=== PATIENT | female | born 1935 | race Caucasian/White ===

== ENCOUNTER 2018-05-13 10:21 | Observation (INO) | payer MEDICARE, OTHER ==
--- NOTE | 2018-05-13 10:40 | Emergency Department Record ---
History of Present Illness - General Chief Complaint: Passed out Stated Complaint: ARMS NUMB, PASSED OUT TOUNGE THICK Time Seen by Provider: 05/13/18 10:26 Source: Patient, Family Mode of Arrival: Wheelchair Limitations: No limitations - History of Present Illness Initial Comments: The patient is here due to possibly passing out for a short time while sitting in a car about an hour ago. She was waiting with her daughter and suddenly felt weak, nauseated and very lightheaded. The patient then reportedly passed out for a few seconds per family. She did not fall or hurt herself. She then when she woke up had very mild R hand numbness, and felt like her tongue was thick. There was no CP, SOB, GARCIA, or visual changes prior to the incident or since. The patient has been evaluated at length recently for iron deficiency anemia and was an inpatient at [facility] within the last month for a week. She had an EGD and Colonoscopy with no bleeding source found and now is scheduled for a camera study. The patient is also getting iron infusions. MD Complaint: Ramah faint, Loss of consciousness Onset/Timin -: Hour(s) Prodromal Symptoms: None Current Symptoms: None Treatments Prior to Arrival: None - Related Data Home Medications Medication Instructions Recorded Confirmed Last Taken Docusate Sodium [Colace] 100 mg PO BID PRN 05/13/18 05/13/18 Unknown Ferrous Sulfate [Feosol] 325 mg PO BID 05/13/18 05/13/18 Unknown Allergies Allergy/AdvReac Type Severity Reaction Status Date / Time codeine Allergy Intermediate NAUSEA Verified 05/13/18 10:27 Travel Screening - Travel/Exposure Within Last 30 Days Have you traveled within the last 30 days?: No Review of Systems Constitutional: Reports: Malaise. Denies: Chills, Fever Eyes: Denies: Eye discharge ENT: Denies: Congestion Respiratory: Denies: Cough, Dyspnea Cardiovascular: Denies: Arrhythmia, Chest pain Endocrine: Reports: Fatigue Gastrointestinal: Denies: Diarrhea, Vomiting Genitourinary: Denies: Dysuria Musculoskeletal: Denies: Arthralgia Neurological: Denies: Abnormal gait Past Medical History - SOCIAL HISTORY Smoking Status: Never smoker - RESPIRATORY Hx Respiratory Disorders: Yes Hx Asthma: Yes Hx COPD: Yes (uses) - CARDIOVASCULAR Hx Cardio Disorders: Yes Hx Hypertension: Yes - NEURO Hx Neuro Disorders: No Hx Neuropathy: Yes (on neurontin) Comment:: RLS - GI Hx GI Disorders: Yes Hx Hiatal Hernia: Yes - Hx Genitourinary Disorders: Yes Comment:: hyst - ENDOCRINE Hx Endocrine Disorders: Yes Hx Thyroid Disease: Yes - MUSCULOSKELETAL Hx Musculoskeletal Disorders: Yes Hx Arthritis: Yes - PSYCH Hx Psych Problems: Yes Hx Anxiety: Yes Hx Depression: Yes - HEMATOLOGY/ONCOLOGY Hx Hematology/Oncology Disorders: No Family Medical History Any Significant Family History?: Yes Hx Cancer: Father Hx Dementia: Mother Hx Heart Disease: Brother/Sister Hx Stroke: Mother Physical Exam - General General Appearance: Alert, Oriented x3, Cooperative, No acute distress - Head Head exam: Atraumatic, Normocephalic, Normal inspection - Eye Eye exam: Normal appearance, PERRL, EOMI - ENT Throat exam: Normal inspection. negative: Tonsillar erythema, Tonsillar exudate - Neck Neck exam: Normal inspection, Full ROM. negative: Tenderness - Respiratory Respiratory exam: Normal lung sounds bilaterally. negative: Respiratory distress - Cardiovascular Cardiovascular Exam: Regular rate, Normal rhythm, Normal heart sounds - GI/Abdominal GI/Abdominal exam: Soft, Normal bowel sounds. negative: Tenderness - Extremities Extremities exam: Normal inspection, Full ROM, Normal capillary refill, Other ( Radial and DP pulses are 2+ and equal bilaterally.). negative: Tenderness - Neurological Neurological exam: Alert, CN II-XII intact, Oriented X3, Reflexes normal. negative: Altered, Motor sensory deficit Course Vital Signs 05/13/18 10:23 Pulse Rate 66 Respiratory 18 Rate Blood Pressure 124/78 Pulse Ox 97 - Reevaluation(s) Reevaluation #1: The patient is doing better at this time. She is resting comfortably and is feeling more herself. 05/13/18 10:56 Reevaluation #2: The patient is doing a lot better at this time. She is alert and active and denies any pain, discomfort, weakness, or numbness. I did recommend a short stay admission and the patient does agree. I also did discuss the case with Yany (NURSE'S COMPANION) and she does agree to the plan for admission. 05/13/18 12:08 Medical Decision Making - Data Complexity MDM Data: Labs Ordered and/or Reviewed, X-Ray Ordered and/or Reviewed, EKG Ordered and/or Reviewed - Lab Data Result diagrams: 05/13/18 10:40 05/13/18 10:40 - EKG Data -: EKG Interpreted by Me EKG: No Acute Changes (NSR at 65, RBBB. Neg ischemic changes.) - Radiology Data Radiology results: Report reviewed (CXR: Neg for acute changes.) Disposition Disposition: Admit Clinical Impression: Syncope Qualifiers: Syncope type: unspecified Qualified Code(s): R55 - Syncope and collapse Disposition: Still a Patient at [facility] Decision to Admit: Admit from ER Decision to Admit Date: 05/13/18 Decision to Admit Time: 12:09 Accepting Physician: Jeff Nieves Discussed w/Accepting Physician: 12:09 Condition: (2) Stable Time of Disposition: 12:09 Quality - Quality Measures Quality Measures: N/A - Blood Pressure Screening View Details: Yes Does Patient Have Any of the Following: No Blood Pressure Classification: Pre-Hypertensive BP Reading Systolic Measurement: 124 Diastolic Measurement: 78 Screening for High Blood Pressure: < Pre-Hypertensive BP, F/U Documented > [ [id number]] Pre-Hypertensive Follow-up Interventions: Referral to alternative/primary care provider.
[2018-05-13] MEDS ORDERED: 0.9 % SODIUM CHLORIDE 1,000 ML BAG IV ONE (10:45)
[2018-05-13 10:53] LABS: BASO % 0.4 % (0-6); EOS % 9.4 % (0-6); GRAN % 70.6 % (47-80); HEMATOCRIT 38.4 % (35.0-47.0); HEMOGLOBIN 11.5 gm/dl (11.6-16.0); LYMPH % 14.3 % (16-45); MEAN CELL VOLUME 82.2 fl (81-97); MEAN CORPUSCULAR HEMOGLOBIN 24.6 pg (27-33); MEAN CORPUSCULAR HGB CONC 29.9 g/dl (32-36); MEAN PLATELET VOLUME 10.2 fl (7.4-10.4); MONO % 5.3 % (0-9); PLATELET COUNT 322 K/uL (130-400); RED BLOOD COUNT 4.67 M/uL (3.80-5.40); WHITE BLOOD COUNT W/O DIFF 6.8 K/uL (4.2-12.2)
[2018-05-13 11:02] LABS: BLOOD UREA NITROGEN 11 mg/dL (8-23); CREATININE 1.2 mg/dL (0.5-0.9); EST GLOMERULAR FILTRATION RATE 46 mL/min
[2018-05-13 11:05] LABS: GLUCOSE,RANDOM 149 mg/dL (74-109)
[2018-05-13 11:06] LABS: INR 1.1; PARTIAL THROMBOPLASTIN TIME 23.1 SECONDS (24.5-39.1); PROTHROMBIN TIME (PATIENT) 10.7 SECONDS (9.5-12.1)
[2018-05-13 11:07] LABS: CREATINE PHOSPHOKINASE 41 U/L (26-192)
[2018-05-13 11:09] LABS: CKMB < 1.0 ng/mL (<3.77)
[2018-05-13 11:12] LABS: RED CELL DISTRIBUTION WIDTH 24.6 % (11.5-14.5)
[2018-05-13] MEDS ORDERED: POTASSIUM CHLORIDE 20 MEQ TABLET PO ONE (11:41)
[2018-05-13] MEDS ORDERED: DOCUSATE SODIUM 100 MG CAPSULE PO PRN (13:22)
--- NOTE | 2018-05-13 14:12 | History & Physical ---
History of Present Illness - Date of Service Date of Service for History & Physical: 05/13/18 - History of Present Illness Admitting Diagnosis: 1. Acute Syncope History of Present Illness: Mrs. Howard is a 82 year-old female who presented to the ED today with c/ o passing out for a short time while sitting in a car about an hour prior. She was waiting with her daughter and suddenly felt weak, nauseated and very lightheaded. The patient then reportedly passed out for a few seconds per family. She did not fall or hurt herself. She then when she woke up had very mild R hand numbness, and felt like her tongue was thick. There was no CP, SOB , GARCIA, or visual changes prior to the incident or since. The patient has been evaluated at length recently for iron deficiency anemia and was an inpatient at [facility] [place] within the last month for a week. She had an EGD and Colonoscopy with no bleeding source found and now is scheduled for a camera study. The patient is also getting iron infusions. Her history includes: HTN, COPD, neuropathy, hiatal hernia, thyroid disease, arthritis, anxiety and depression. In the ED, her vital signs were stable. Her labs revealed Hgb of 11.5, creatinine of 1.2- values appear to be pt's baseline. EKG revealed right BBB, NSR with rate of 65, no acute changes. CXR negative for acute process. Head CT negative for acute changes. She was admitted for obs to r/o cardiac cause of dizziness. 05/13/18 1400: Pt. is resting comfortably in bed. She presently denies any chest pain or dizziness. Cardiology consult ordered, 2D echo w/CF ordered. Also ordered carotid dopplers. PCP: Dr. Murphy Travel Screening - Travel/Exposure Within Last 30 Days Have you traveled within the last 30 days?: No - Travel/Exposure Within Last Year Have you traveled outside the [place] in the last year?: No - Additonal Travel Details Have you been exposed to anyone with a communicable illness?: No - Travel Symptoms Symptom Screening: None Review of Systems Constitutional: Reports: Malaise. Denies: Chills, Fever Eyes: Denies: Eye discharge ENT: Denies: Congestion Respiratory: Denies: Cough, Dyspnea Cardiovascular: Denies: Arrhythmia, Chest pain Endocrine: Reports: Fatigue Gastrointestinal: Denies: Diarrhea, Vomiting Genitourinary: Denies: Dysuria Musculoskeletal: Denies: Arthralgia Neurological: Denies: Abnormal gait Past Medical History - SOCIAL HISTORY Smoking Status: Never smoker - RESPIRATORY Hx Respiratory Disorders: Yes Hx Asthma: Yes Hx COPD: Yes (uses) - CARDIOVASCULAR Hx Cardio Disorders: Yes Hx Hypertension: Yes - NEURO Hx Neuro Disorders: No Hx Neuropathy: Yes (on neurontin) Comment:: RLS - GI Hx GI Disorders: Yes Hx Hiatal Hernia: Yes - Hx Genitourinary Disorders: Yes Comment:: hyst - ENDOCRINE Hx Endocrine Disorders: Yes Hx Thyroid Disease: Yes - MUSCULOSKELETAL Hx Musculoskeletal Disorders: Yes Hx Arthritis: Yes - PSYCH Hx Psych Problems: Yes Hx Anxiety: Yes Hx Depression: Yes - HEMATOLOGY/ONCOLOGY Hx Hematology/Oncology Disorders: No Family Medical History Any Significant Family History?: Yes Hx Cancer: Father Hx Dementia: Mother Hx Heart Disease: Brother/Sister Hx Stroke: Mother H&P Meds/Allergies - Allergies Allergies: Allergies Allergy/AdvReac Type Severity Reaction Status Date / Time codeine Allergy Intermediate NAUSEA Verified 05/13/18 10:27 - Home Medications Home Medications Medication Instructions Recorded Confirmed Last Taken Docusate Sodium [Colace] 100 mg PO BID PRN 05/13/18 05/13/18 Unknown Ferrous Sulfate [Feosol] 325 mg PO BID 05/13/18 05/13/18 Unknown - Active Medications Active Medications: Current Medications Acetaminophen (Tylenol 500mg Tab) 500 mg PO Q6H PRN PRN Reason: PAIN - MILD(1-4)/FEVER Atorvastatin Calcium (Lipitor) 80 mg PO DAILY [facility] Furosemide (Lasix) 20 mg PO QAM [facility] Gabapentin (Neurontin) 100 mg PO BID [facility] Isosorbide Mononitrate (Imdur) 60 mg PO QAM [facility] Levothyroxine Sodium (Synthroid) 150 mcg PO DAILYTHY [facility] Montelukast Sodium (Singulair) 10 mg PO QHS [facility] Non-Formulary Medication (Aliskiren Hemifumarate [Tekturna]) 300 mg PO QAM [facility] Patient Own Med: (Dexilant 60 Mg) 1 each PO DAILYAC [facility] Ranitidine HCl (Zantac) 300 mg PO QHS [facility] Ropinirole HCl (Requip) 2 mg PO DAILY [facility] Ropinirole HCl (Requip) 4 mg PO QHS [facility] Venlafaxine HCl (Effexor Xr) 75 mg PO DAILY [facility] Physical Exam - Vital Signs Vital Signs: Vital Signs - Last 24 Hrs Temp Pulse Pulse Resp BP BP Pulse Ox 05/13/18 14:05 18 05/13/18 13:25 97.5 F L 58 L 16 135/65 95 05/13/18 13:09 58 L 16 128/65 98 05/13/18 10:43 98.4 F 05/13/18 10:23 66 18 124/78 97 - General General Appearance: Alert, Oriented x3, Cooperative, No acute distress Limitations: No limitations - Head Head exam: Atraumatic, Normocephalic, Normal inspection - Eye Eye exam: Normal appearance, PERRL, EOMI - ENT Throat exam: Normal inspection. negative: Tonsillar erythema, Tonsillar exudate - Neck Neck exam: Normal inspection, Full ROM. negative: Tenderness - Respiratory Respiratory exam: Normal lung sounds bilaterally. negative: Respiratory distress - Cardiovascular Cardiovascular Exam: Regular rate, Normal rhythm, Normal heart sounds - GI/Abdominal GI/Abdominal exam: Soft, Normal bowel sounds. negative: Tenderness - Extremities Extremities exam: Normal inspection, Full ROM, Normal capillary refill, Other ( Radial and DP pulses are 2+ and equal bilaterally.). negative: Tenderness - Neurological Neurological exam: Alert, CN II-XII intact, Oriented X3, Reflexes normal. negative: Altered, Motor sensory deficit Results - Labs Result Diagrams: 05/13/18 10:40 05/13/18 10:40 Labs Last 24 Hours: Laboratory Results - last 24 hr 05/13/18 05/13/18 05/13/18 10:40 10:40 10:40 WBC 6.8 RBC 4.67 Hgb 11.5 L Hct 38.4 MCV 82.2 MCH 24.6 L MCHC 29.9 L RDW 24.6 H Plt Count 322 MPV 10.2 Gran % 70.6 Lymphocytes % 14.3 L Monocytes % 5.3 Eosinophils % 9.4 H Basophils % 0.4 PT 10.7 INR 1.1 APTT 23.1 L Sodium 142 Potassium 3.3 L Chloride 100 Carbon Dioxide 27.0 Anion Gap 15.0 BUN 11 Creatinine 1.2 H Estimated GFR 46 Random Glucose 149 H Calcium 9.6 Creatine Kinase 41 CK-MB (CK-2) < 1.0 Troponin T < 0.010 - Imaging and Cardiology CT scan - head Status: Report reviewed (no acute chages) VTE H&P Assessment - Risk for VTE Risk for VTE: Yes Risk Level: Moderate Risk Assessment Date: 05/13/18 Risk Assessment Time: 14:37 VTE Orders Placed or Will Be Placed: Yes Plan - Detailed Diagnosis and Plan (1) Syncope Current Visit: Yes Status: Acute Qualifiers: Syncope type: unspecified Qualified Code(s): R55 - Syncope and collapse Base Code: R55 - SYNCOPE AND COLLAPSE Comment: 05/13/18: -Pt. currently denies symptoms -RBBB on tele, EKG in ED showed no acute changes -Consulted cardiology, ordered 2D echo w/CF -ordered carotid dopplers -hx of iron deficiency anemia- hgb 11.5 today (2) Iron deficiency anemia Current Visit: Yes Status: Acute Base Code: D50.9 - IRON DEFICIENCY ANEMIA, UNSPECIFIED Comment: 04/13/18: -Hbg in ED 11.5 -Pt. recieves iron infusions -Iron def anemia with unknown cause- capsule GI study scheduled OP -Will continue to monitor labs and VS (3) At risk for deep venous thrombosis Current Visit: Yes Status: Acute Base Code: Z91.89 - OTH PERSONAL RISK FACTORS, NOT ELSEWHERE CLASSIFIED Comment: 05/13/18: -Lovenox 40mg SC daily ordered for DVT prophylaxis (4) Full code status Current Visit: Yes Status: Acute Base Code: Z78.9 - OTHER SPECIFIED HEALTH STATUS Comment: 05/13/18: -Pt. is a full code
[2018-05-13] MEDS: MONTELUKAST SODIUM 10MG TABLET PO SCH (21:29)
[2018-05-13] MEDS: RANITIDINE HCL 150 MG TABLET PO SCH (21:29)
[2018-05-13] MEDS: ROPINIROLE HCL 1 MG TABLET PO SCH (21:29)
[2018-05-13] MEDS: GABAPENTIN 100 MG CAPSULE PO SCH (21:29)
[2018-05-13] MEDS: ENOXAPARIN 40 MG/0.4 ML SYR SQ SCH (21:32)
[2018-05-13] MEDS ORDERED: ROPINIROLE HCL 1 MG TABLET PO SCH (22:00)
[2018-05-13] MEDS ORDERED: FERROUS SULFATE 325 MG TAB PO SCH (22:00)
--- NOTE | 2018-05-14 04:59 | RADIOLOGY REPORT ---
EXAM: PORTABLE CHEST HISTORY: DIFFICULTY IN BREATHING. TECHNIQUE: A portable AP upright view of the chest was performed. FINDINGS: The heart size is normal. Moderate sliding type hiatal hernia. No infiltrate or pleural effusion. The osseous structures are normal. IMPRESSION: MODERATE SLIDING TYPE HIATAL HERNIA, OTHERWISE NEGATIVE. JOB NUMBER: [id number] MTDD
[2018-05-14] MEDS: ALISKIREN HEMIFUMARATE 300 MG PO SCH ×2 (05:01→09:50)
--- NOTE | 2018-05-14 05:05 | US CAROTID DOPPLER REPORT ---
EXAM: BILATERAL CAROTID DOPPLER ULTRASOUND HISTORY: SYNCOPAL EPISODE TODAY, DIZZINESS WHEN STANDING. TECHNIQUE: Shrestha scale, color Doppler and duplex Doppler evaluation of the bilateral carotid arteries was performed. Comparison: No prior carotid Doppler with which to compare. FINDINGS: 3 Vessel Right Peak Systolic/ End Diastolic Velocities Left Peak Systolic/ End Diastolic Velocities Proximal Common Carotid Artery 92.2 cm/s /16.4 cm/s 84.5 cm/s /16.4 cm/s Mid Common Carotid Artery 85.6 cm/s /10.9 cm/s 86.7 cm/s /17.5 cm/s Distal Common Carotid Artery 79.0 cm/s /15.3 cm/s 70.2 cm/s /13.1 cm/s Proximal Internal Carotid Artery 81.4 cm/s /15.4 cm/s 72.4 cm/s /18.0 cm/s Mid Internal Carotid Artery 76.3 cm/s /18.0 cm/s 85.3 cm/s /20.6 cm/s Distal Internal Carotid Artery 86.6 cm/s /18.0 cm/s 85.3 cm/s /18.0 cm/s Carotid Bulb 78.9 cm/s /11.5 cm/s 49.3 cm/s /8.7 cm/s Proximal External Carotid Artery 78.9 cm/s /6.3 cm/s 77.5 cm/s /6.3 cm/s d d d Right Flow Left Flow Vertebral Artery Antegrade Antegrade The peak systolic velocity ratio on the right is 1.0. The peak systolic velocity ratio on the left is 1.0. When the images themselves are reviewed, flow is well seen throughout with no prominent plaque identified within either carotid. IMPRESSION: THE BILATERAL CAROTID DOPPLER ULTRASOUND IS ESSENTIALLY NEGATIVE. NON-ELEVATED PEAK SYSTOLIC AND END DIASTOLIC VELOCITIES WITH NORMAL PEAK SYSTOLIC VELOCITY RATIOS. JOB NUMBER: [id number] MTDD
[2018-05-14] MEDS: LEVOTHYROXINE SODIUM 150 MCG TABLET PO SCH (06:13)
[2018-05-14] MEDS: PATIENT OWN MED: DEXILANT 60 MG PO SCH (06:20)
[2018-05-14 06:48] LABS: BASO % 0.3 % (0-6); EOS % 3.1 % (0-6); GRAN % 68.8 % (47-80); HEMATOCRIT 36.9 % (35.0-47.0); HEMOGLOBIN 11.2 gm/dl (11.6-16.0); LYMPH % 20.2 % (16-45); MEAN CELL VOLUME 82.7 fl (81-97); MEAN CORPUSCULAR HEMOGLOBIN 25.1 pg (27-33); MEAN CORPUSCULAR HGB CONC 30.4 g/dl (32-36); MEAN PLATELET VOLUME 9.9 fl (7.4-10.4); MONO % 7.6 % (0-9); PLATELET COUNT 421 K/uL (130-400); RED BLOOD COUNT 4.46 M/uL (3.80-5.40); RED CELL DISTRIBUTION WIDTH 24.4 % (11.5-14.5); WHITE BLOOD COUNT W/O DIFF 5.9 K/uL (4.2-12.2)
[2018-05-14 06:58] LABS: CREATININE 1.1 mg/dL (0.5-0.9)
--- NOTE | 2018-05-14 08:46 | Physician Progress Note ---
Subjective - Date Date of Physician Progress Note: 05/14/18 - Subjective Subjective Comment: The patient is awake, alert and without any medical compliant this morning. She says that she has not felt dizzy, or lightheaded and has not had any chest pain or shortness of breath. Objective - Vital Signs Vital Signs: Vital Signs - Last 24 Hrs Temp Pulse Pulse Resp BP BP Pulse Ox 05/14/18 08:13 98.0 F 67 18 191/78 97 05/14/18 08:04 18 05/14/18 06:38 62 177/73 05/14/18 04:00 97.4 F L 68 16 186/79 96 05/13/18 21:00 16 05/13/18 20:00 97.5 F L 62 16 147/74 96 05/13/18 16:25 97.2 F L 60 18 144/72 98 05/13/18 14:05 18 05/13/18 13:25 97.5 F L 58 L 16 135/65 95 05/13/18 13:09 58 L 16 128/65 98 05/13/18 10:43 98.4 F 05/13/18 10:23 66 18 124/78 97 - General General Appearance: Alert, Oriented x3, Cooperative, No acute distress Limitations: No limitations - Head Head exam: Atraumatic, Normocephalic, Normal inspection - Eye Eye exam: Normal appearance, PERRL, EOMI - ENT Throat exam: Normal inspection. negative: Tonsillar erythema, Tonsillar exudate - Neck Neck exam: Normal inspection, Full ROM. negative: Tenderness - Respiratory Respiratory exam: Normal lung sounds bilaterally. negative: Respiratory distress - Cardiovascular Cardiovascular Exam: Regular rate, Normal rhythm, Normal heart sounds Peripheral Pulses: 3+: Radial (R), Radial (L), Dorsalis Pedis (R), Dorsalis Pedis (L) - GI/Abdominal GI/Abdominal exam: Soft, Normal bowel sounds. negative: Tenderness - Extremities Extremities exam: Normal inspection, Full ROM, Normal capillary refill, Other ( Radial and DP pulses are 2+ and equal bilaterally.). negative: Tenderness - Neurological Neurological exam: Alert, CN II-XII intact, Oriented X3, Reflexes normal. negative: Altered, Motor sensory deficit Assessment and Plan - Assessment and Plan (1) Syncope Current Visit: Yes Status: Acute Qualifiers: Syncope type: unspecified Qualified Code(s): R55 - Syncope and collapse Base Code: R55 - SYNCOPE AND COLLAPSE Comment: 05/14/18: - No events on court monitor - RBBB on tele, EKG in ED showed no acute changes - Cardioliogy recommending Cardiolite stress and outpatient workup. - Carotid dopplers negative, Echo showing preserved EF of 65% (2) Uncontrolled hypertension Current Visit: Yes Status: Acute Base Code: I10 - ESSENTIAL (PRIMARY) HYPERTENSION Comment: 05/14/18: - poorly controlled BP pm Tekturna 300mg Qam at home. - stopping Imdur 60mg daily. - starting Hydralazine 25ng QID [facility] - monitor over the next 24 hours (3) Iron deficiency anemia Current Visit: Yes Status: Acute Base Code: D50.9 - IRON DEFICIENCY ANEMIA, UNSPECIFIED Comment: 04/14/18: -Hbg in ED 11.5 -->11.2 -Pt. recieves iron infusions -Iron def anemia with unknown cause- capsule GI study scheduled OP -Will continue to monitor labs and VS (4) Hypothyroidism Current Visit: Yes Status: Acute Base Code: E03.9 - HYPOTHYROIDISM, UNSPECIFIED Comment: 05/14/18: - resume home dose of Levothyroxine. (5) At risk for deep venous thrombosis Current Visit: Yes Status: Acute Base Code: Z91.89 - OTH PERSONAL RISK FACTORS, NOT ELSEWHERE CLASSIFIED Comment: 05/14/18: -Lovenox 40mg SC daily ordered for DVT prophylaxis (6) Full code status Current Visit: Yes Status: Acute Base Code: Z78.9 - OTHER SPECIFIED HEALTH STATUS Comment: 05/14/18: -Pt. is a full code Results - Labs Result Diagrams: 05/14/18 06:23 05/14/18 06:23 Labs Last 24 Hours: Laboratory Results - last 24 hr 05/13/18 05/13/18 05/13/18 10:40 10:40 10:40 WBC 6.8 RBC 4.67 Hgb 11.5 L Hct 38.4 MCV 82.2 MCH 24.6 L MCHC 29.9 L RDW 24.6 H Plt Count 322 MPV 10.2 Gran % 70.6 Lymphocytes % 14.3 L Monocytes % 5.3 Eosinophils % 9.4 H Basophils % 0.4 PT 10.7 INR 1.1 APTT 23.1 L Sodium 142 Potassium 3.3 L Chloride 100 Carbon Dioxide 27.0 Anion Gap 15.0 BUN 11 Creatinine 1.2 H Estimated GFR 46 Random Glucose 149 H Calcium 9.6 Creatine Kinase 41 CK-MB (CK-2) < 1.0 Troponin T < 0.010 05/13/18 05/14/18 05/14/18 16:32 00:00 06:23 WBC 5.9 RBC 4.46 Hgb 11.2 L Hct 36.9 MCV 82.7 MCH 25.1 L MCHC 30.4 L RDW 24.4 H Plt Count 421 H MPV 9.9 Gran % 68.8 Lymphocytes % 20.2 Monocytes % 7.6 Eosinophils % 3.1 Basophils % 0.3 PT INR APTT Sodium Potassium Chloride Carbon Dioxide Anion Gap BUN Creatinine Estimated GFR Random Glucose Calcium Creatine Kinase CK-MB (CK-2) Troponin T < 0.010 < 0.010 05/14/18 06:23 WBC RBC Hgb Hct MCV MCH MCHC RDW Plt Count MPV Gran % Lymphocytes % Monocytes % Eosinophils % Basophils % PT INR APTT Sodium 143 Potassium 4.0 Chloride 104 Carbon Dioxide 30.0 H Anion Gap 9.0 BUN 13 Creatinine 1.1 H Estimated GFR 51 Random Glucose 105 Calcium 9.6 Creatine Kinase CK-MB (CK-2) Troponin T DVT/PE Assessment - Risk for VTE Risk for VTE: No Risk Level: Moderate Risk Assessment Date: 05/13/18 Risk Assessment Time: 14:37 VTE Orders Placed or Will Be Placed: Yes - Active Medicaitons Current Medications: Current Medications Acetaminophen (Tylenol 500mg Tab) 500 mg PO Q6H PRN PRN Reason: PAIN - MILD(1-4)/FEVER Atorvastatin Calcium (Lipitor) 80 mg PO DAILY [facility] Enoxaparin Sodium (Lovenox) 40 mg SQ QHS [facility] Last Admin: 05/13/18 21:32 Dose: 40 mg Furosemide (Lasix) 20 mg PO QAM [facility] Gabapentin (Neurontin) 100 mg PO BID [facility] Last Admin: 05/13/18 21:29 Dose: 100 mg Hydralazine HCl (Apresoline) 25 mg PO QID [facility] Isosorbide Mononitrate (Imdur) 60 mg PO QAM [facility] Last Admin: 05/14/18 05:01 Dose: 60 mg Levothyroxine Sodium (Synthroid) 150 mcg PO DAILYTHY [facility] Last Admin: 05/14/18 06:13 Dose: 150 mcg Montelukast Sodium (Singulair) 10 mg PO QHS [facility] Last Admin: 05/13/18 21:29 Dose: 10 mg Non-Formulary Medication (Aliskiren Hemifumarate [Tekturna]) 300 mg PO QAM [facility] Last Admin: 05/14/18 05:01 Dose: 300 mg Patient Own Med: ([facility]ilant 60 Mg) [facility] Last Admin: 05/14/18 06:20 Dose: Not Given Ranitidine HCl (Zantac) 300 mg PO QHS [facility] Last Admin: 05/13/18 21:29 Dose: 300 mg Ropinirole HCl (Requip) 2 mg PO DAILY [facility] Ropinirole HCl (Requip) 4 mg PO QHS [facility] Last Admin: 05/13/18 21:29 Dose: 4 mg Venlafaxine HCl (Effexor Xr) 75 mg PO DAILY [facility] AMI Plan - Labs Result Diagrams: 05/14/18 06:23 05/14/18 06:23
[2018-05-14] MEDS: ROPINIROLE HCL 1 MG TABLET PO SCH ×2 (09:48→21:36)
[2018-05-14] MEDS: GABAPENTIN 100 MG CAPSULE PO SCH ×2 (09:48→21:36)
[2018-05-14] MEDS: FUROSEMIDE 20 MG TABLET PO SCH (09:48)
[2018-05-14] MEDS: ATORVASTATIN 20 MG TABLET PO SCH (09:49)
[2018-05-14] MEDS: VENLAFAXINE ER 75 MG CAPSULE PO SCH (09:49)
[2018-05-14] MEDS: HYDRALAZINE HCL 25 MG TABLET PO SCH ×4 (09:50→21:36)
[2018-05-14] MEDS ORDERED: ISOSORBIDE MONONITRATE 60 MG TAB.ER.24H PO SCH (10:00)
[2018-05-14] MEDS: ACETAMINOPHEN 500 MG TABLET PO PRN ×2 (11:18→17:59)
[2018-05-14] MEDS ORDERED: CARVEDILOL 3.125 MG TABLET PO ONE (12:27)
--- NOTE | 2018-05-14 16:37 | Cardiology Consult ---
DATE OF CONSULTATION: 05/14/2018 REASON FOR CONSULT: SYNCOPE. HISTORY OF PRESENT ILLNESS: This is a pleasant 82-year-old female who presented to the Emergency Department on 05/13/18 with complaints of passing out while sitting in the car. She had been waiting for her daughter and felt nauseated and weak and lightheaded and feels she did lose consciousness for a few seconds. She also complained of her tongue feeling sick and right hand numbness. She denies any symptoms of chest pain, increased dyspnea, orthopnea, or PND. She denies any palpitations or significant lower extremity edema. The patient recently had been admitted to [facility] and was found to be anemic and did undergo transfusions. At that time, she did undergo an echocardiogram, which did demonstrate preserved LVEF. Preliminary report of echocardiography performed here demonstrates also preserved LVEF and no obvious wall motion abnormalities. Patient history includes; hypertension, COPD, neuropathy, hiatal hernia, thyroid disease, arthritis, anxiety, depression, and anemia. She denies a significant family history of premature coronary artery disease. She state her mother did have coronary artery disease but this was in her 70s to 80s. EKG demonstrates right bundle branch and normal sinus rhythm at a rate of 65 beats per minute. No acute changes noted. Head CT was negative for acute changes. The patient does have a previous smoking history but quit years ago. REVIEW OF SYSTEMS: CONSTITUTIONAL: Denies any recent illness, chills, or fever. HEENT: Denies any congestion, headache, change in hearing, or changes in vision. RESPIRATORY; Denies dyspnea, denies cough. CARDIOVASCULAR; Denies palpitation. Denies chest pain. GASTROINTESTINAL; Positive nausea, negative diarrhea, negative vomiting. GENITOURINARY; Denies dysuria. MUSCULOSKELETAL: Denies arthralgia. NEUROLOGICAL : Denies headache or dizziness. HEMATOLOGICAL; Denies easy bruising, history of blood clots. PAST MEDICAL HISTORY: Hypertension, COPD, neuropathy, hiatal hernia, thyroid disease, arthritis, anxiety, depression, anemia. SOCIAL HISTORY: Previous smoker, quit years ago. Denies alcohol consumption. FAMILY HISTORY: Negative for premature coronary artery disease. ALLERGIES: CODEINE. HOME MEDICATIONS: Colace 100 mg b.i.d. prn Iron 325 mg b.i.d. CURRENT MEDICATIONS: Lipitor 80 mg daily Lasix 20 mg daily Neurontin 100 mg b.i.d. Imdur 60 mg every a.m. Synthroid 150 mcg daily Singulair 10 mg p.o. daily Tekturna 300 mg every a.m. Dexilant 60 mg daily Zantac 300 mg daily Requip 2 mg daily Effexor 75 mg daily PHYSICAL EXAMINATION: VITAL SIGNS: Blood pressure 135/65. Pulse 56. Respirations 16. O2 saturation 95 % on room air. She is afebrile. GENERAL: She is alert and oriented x3, in no acute distress. HEENT: Normocephalic, atraumatic. Extraocular movements are intact. Pupils are equal and round. NECK: Supple without lymphadenopathy, thyromegaly, or bruits. CARDIAC: Regular rate and rhythm. No significant murmurs were appreciated. LUNGS: Clear to auscultation in all lung manuel without rales, rhonchi, or wheeze. ABDOMEN: Soft, nontender. Bowel sounds present in all four quadrants. EXTREMITIES: Trace bilateral edema. SKIN: Warm and dry. DIAGNOSTIC STUDIES: LABORATORIES: WBC 6.8. Hemoglobin 11.5 Hematocrit 38.4. Platelet count 322. Sodium 142. Potassium 3.3. Chloride 100. CO2 of 27. BUN 11. Creatinine 1.2. Glucose 149. Troponin less than 0.010. CHEST X-RAY: Chest x-ray was negative for acute process. ASSESSMENT/PLAN: 1. SYNCOPE, POSSIBLY VASOVAGAL EPISODE. We will plan 30-day event monitor. Repeat echocardiogram preliminary report demonstrates no wall motion abnormality and preserved LVEF. We will plan to perform a Lexiscan Cardiolite to assess for any underlying ischemia contributing to symptoms. 2. HYPERTENSION: Patient's blood pressure is well-controlled on the current medication regimen. The patient may be discharged from the cardiac standpoint. We will follow-up with the patient as an outpatient to review Lexiscan Cardiolite and event monitoring. Further recommendations at that time. Thank you for the opportunity to have participated in this patient's care. JOB NUMBER: [id number] [facility]
[2018-05-14] MEDS: MONTELUKAST SODIUM 10MG TABLET PO SCH (21:36)
[2018-05-14] MEDS: RANITIDINE HCL 150 MG TABLET PO SCH (21:36)
[2018-05-14] MEDS: ENOXAPARIN 40 MG/0.4 ML SYR SQ SCH (21:37)
[2018-05-15] MEDS: LEVOTHYROXINE SODIUM 150 MCG TABLET PO SCH (06:02)
[2018-05-15] MEDS: PATIENT OWN MED: DEXILANT 60 MG PO SCH (06:03)
[2018-05-15] MEDS: HYDRALAZINE HCL 25 MG TABLET PO SCH (09:56)
[2018-05-15] MEDS: ATORVASTATIN 20 MG TABLET PO SCH (09:56)
[2018-05-15] MEDS: GABAPENTIN 100 MG CAPSULE PO SCH (09:56)
[2018-05-15] MEDS: VENLAFAXINE ER 75 MG CAPSULE PO SCH (09:56)
[2018-05-15] MEDS: ALISKIREN HEMIFUMARATE 300 MG PO SCH (09:56)
[2018-05-15] MEDS: ROPINIROLE HCL 1 MG TABLET PO SCH (09:57)
[2018-05-15] MEDS: FUROSEMIDE 20 MG TABLET PO SCH (09:57)
--- NOTE | 2018-05-15 09:58 | Discharge Summary ---
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 negative: Tonsillar erythema, Tonsillar exudate - Neck Neck exam: Normal inspection, Full ROM. negative: Tenderness - Respiratory Respiratory exam: Normal lung sounds bilaterally. negative: Respiratory distress - Cardiovascular Cardiovascular Exam: Regular rate, Normal rhythm, Normal heart sounds Peripheral Pulses: 3+: Radial (R), Radial (L), Dorsalis Pedis (R), Dorsalis Pedis (L) - GI/Abdominal GI/Abdominal exam: Soft, Normal bowel sounds. negative: Tenderness - Extremities Extremities exam: Normal inspection, Full ROM, Normal capillary refill, Other ( Radial and DP pulses are 2+ and equal bilaterally.). negative: Tenderness - Neurological Neurological exam: Alert, CN II-XII intact, Oriented X3, Reflexes normal. negative: Altered, Motor sensory deficit Hospitalization - Hospitalization Admission Diagnosis: 1. Acute Syncope - Problem List/Discharge Diagnosis (1) Syncope Status: Acute Discharge Diagnosis: Syncope type: unspecified Qualified Code(s): R55 - Syncope and collapse Base Code: R55 - SYNCOPE AND COLLAPSE Comment: 05/15/18: - No events on desk monitor - RBBB on tele, EKG in ED showed no acute changes - Cardioliogy recommending Cardiolite stress and outpatient workup. - Carotid dopplers negative, Echo showing preserved EF of 65% (2) Uncontrolled hypertension Status: Acute Base Code: I10 - ESSENTIAL (PRIMARY) HYPERTENSION Comment: 05/15/18: - poorly controlled BP pm Tekturna 300mg Qam at home. - stopping Imdur 60mg daily. - starting Hydralazine 25mg QID DEBORAH - monitor over the next 24 hours - BP has improved on hydralazine. (3) Iron deficiency anemia Status: Acute Base Code: D50.9 - IRON DEFICIENCY ANEMIA, UNSPECIFIED Comment : 04/15/18: -Hbg in ED 11.5 -->11.2 -Pt. recieves iron infusions -Iron def anemia with unknown cause- capsule GI study scheduled OP -Will continue to monitor labs and VS (4) Hypothyroidism Status: Acute Base Code: E03.9 - HYPOTHYROIDISM, UNSPECIFIED Comment: 05/15/18: - resume home dose of Levothyroxine. (5) At risk for deep venous thrombosis Status: Acute Base Code: Z91.89 - [facility] PERSONAL RISK FACTORS, NOT ELSEWHERE CLASSIFIED Comment: 05/15/18: -Lovenox 40mg SC daily ordered for DVT prophylaxis (6) Full code status Status: Acute Base Code: Z78.9 - OTHER SPECIFIED HEALTH STATUS Comment: : -Pt. is a full code - Hospitalization Course Disposition: Home, Self-Care Hospital Course: Mrs. Howard is a 82 year-old female who presented to the ED today with c/ o passing out for a short time while sitting in a car about an hour prior. She was waiting with her daughter and suddenly felt weak, nauseated and very lightheaded. The patient then reportedly passed out for a few seconds per family. She did not fall or hurt herself. She then when she woke up had very mild R hand numbness, and felt like her tongue was thick. There was no CP, SOB , GARCIA, or visual changes prior to the incident or since. The patient has been evaluated at length recently for iron deficiency anemia and was an inpatient at [facility] within the last month for a week. She had an EGD and Colonoscopy with no bleeding source found and now is scheduled for a camera study. The patient is also getting iron infusions. Her history includes: HTN, COPD, neuropathy, hiatal hernia, thyroid disease, arthritis, anxiety and depression. In the ED, her vital signs were stable. Her labs revealed Hgb of 11.5, creatinine of 1.2- values appear to be pt's baseline. EKG revealed right BBB, NSR with rate of 65, no acute changes. CXR negative for acute process. Head CT negative for acute changes. She was admitted for obs to r/o cardiac cause of dizziness. 05/13/18 1400: Pt. is resting comfortably in bed. She presently denies any chest pain or dizziness. Cardiology consult ordered, 2D echo w/CF ordered. 05/14-05/15: Dopplers negative for stenosis, 2D echo showing preserved EF. The patient's blood pressure is not well controlled and hydralazine was added to her medication. Imdur was discontinued and over the 24 hour period her blood pressure improved. On examination at discharge the patient had no new complaint and is to be discharged home with further management by her primary care doctor. The medication regimen was explained to the patient and her daughter. PCP: Dr. Murphy Procedures: Imaging and X-Rays 05/13/18 10:45 CHEST 1 VIEW [RAD] Stat 05/13/18 14:28 ARTERIAL DOPPLER CAROTID CHIARA [US] Stat Cardiology Procedures 05/13/18 10:37 Promotions Representative NOW EKG NOW 05/13/18 12:05 Echo W/CF & Cardiac Doppler ONCE 05/13/18 13:22 Promotions Representative .Continuous EKG QDX2@0600 05/13/18 15:24 Echocardiogram 2D - Limited NOW Abnormal Labs: Abnormal Lab Results 05/13/18 05/13/18 05/13/18 Range/Units 10:40 10:40 10:40 Hgb 11.5 L (11.6-16.0) gm/dl MCH 24.6 L (27-33) pg MCHC 29.9 L (32-36) g/dl RDW 24.6 H (11.5-14.5) % Plt Count (130-400) K/uL Lymphocytes % 14.3 L (16-45) % Eosinophils % 9.4 H (0-6) % APTT 23.1 L (24.5-39.1) SECONDS Potassium 3.3 L (3.4-4.5) mmol/L Carbon Dioxide (22-29) mmol/L Creatinine 1.2 H (0.5-0.9) mg/dL Random Glucose 149 H (74-109) mg/dL 18 05/14/18 Range/Units 06:23 06:23 Hgb 11.2 L (11.6-16.0) gm/dl MCH 25.1 L (27-33) pg MCHC 30.4 L (32-36) g/dl RDW 24.4 H (11.5-14.5) % Plt Count 421 H (130-400) K/uL Lymphocytes % (16-45) % Eosinophils % (0-6) % APTT (24.5-39.1) SECONDS Potassium (3.4-4.5) mmol/L Carbon Dioxide 30.0 H (22-29) mmol/L Creatinine 1.1 H (0.5-0.9) mg/dL Random Glucose (74-109) mg/dL Condition at Discharge: (2) Stable Discharge Medications - Discharge Medications Prescriptions: Hydralazine HCl [Apresoline] 25 mg PO TID #21 tablet Home Medications: Ambulatory Orders [place] Hemifumarate [Tekturna] 300 mg PO QAM 01/14/16 [Last Taken Unknown] Furosemide 20 mg PO QAM 01/14/16 [Last Taken Unknown] Gabapentin 100 mg PO BID 01/14/16 [Last Taken Unknown] Levothyroxine Sodium [Synthroid] 150 mcg PO QAM 01/14/16 [Last Taken Unknown] Ropinirole HCl [Requip] 2 mg PO BID 01/14/16 [Last Taken Unknown] Docusate Sodium [Colace] 100 mg PO BID PRN 05/13/18 [Last Taken Unknown] Ferrous Sulfate [Feosol] 325 mg PO BID 05/13/18 [Last Taken Unknown] Hydralazine HCl [Apresoline] 25 mg PO TID #21 tablet 05/15/18 [Last Taken Unknown] Montelukast Sodium [Singulair] 10 mg PO QHS tab 05/15/18 [Last Taken Unknown] Ranitidine HCl [Zantac] 300 mg PO QHS tablet 05/15/18 [Last Taken Unknown] Discharge Plan - Discharge Instructions Instructions: Syncope (DC), Hypertension (DC) Additional Instructions: Discontinue Imdur 60mg daily. Begin taking Hydralazine 25mg three times daily. Follow up with your PCP Dr. Chandler in 3-5 days for medication dose adjustments and post hospital check up. Appointment with Dr. Rodriguez of the [facility] for Stress testing and further Cardiology workup on 06/12/17. If you experience the symptoms again or have shortness of breath or chest pain please return to the ED immediately. Quality Measures - Quality Measures Quality Measures: Advance Directives, Documentation of Current Medications in Medical Record, Elder Maltreatment Screen and Follow-Up Plan, Screening for High Blood Pressure and F/U Documented - Current Medications Quality Measure: Measure #130: Documentation of Current Medications Documentation of Current Medications: <Current Medications Documented/Reviewed> [G8427] - Blood Pressure Screening Quality Measure: Screening for High Blood Pressure and Follow-Up Documented Does Patient Have Any of the Following: Active Dx of HTN Blood Pressure Classification: Pre-Hypertensive BP Reading Systolic Measurement: 124 Diastolic Measurement: 78 Screening for High Blood Pressure: Patient Exclusion, Hx of HTN [G9744] - Advance Directives Quality Measure: Measure #47: Care Plan Advance Directives Established: No Advance Directives Information Provided To Patient: No Advance Directives on File: No Living Will: Yes 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 Power of Wire Machine Cutter Name: verónica() Advance Care Planning: <Care Plan/Decision Maker Not Decided; Discussed & Documented> [1124F] - Elder Abuse Suspicion Index Screening: Elder Abuse Suspicion Index Screening Rely on people for bathing, dressing, shopping, banking, etc: No Prevented from getting food, clothes, medication, etc: No Made to feel shamed or threatened by someone: No Forced to sign papers or use money against will: No Feel afraid, touched in ways not wanted or hurt physically: No Poor eye contact, withdrawn, malnourished, cuts or bruises: No Screening Result: Negative result EASI Reference Information: Sherron SR, Gregoria C, Jeremiah D, Slava Lawler.Development and validation of a tool to assist physicians identification of elder abuse: The Elder Abuse Suspicion Index (EASI ). Journal of Elder Abuse and Neglect, 2008; 20 (3): 276-300. - Elder Maltreatment Screen Quality Measures: Elder Maltreatment Screen and Follow-Up Plan Elder Maltreatment Screen: <Negative, No Follow-Up Plan Required> [G8735]
== END 2018-05-15 10:30 | disposition home or self-care (01) ==
LOC: ER 10:21 → MEDSURG 12:02
PROVIDERS: ADMIT Internal Medicine; ATTEND Internal Medicine
DX: R55 Syncope and collapse (principal); D50.9 Iron deficiency anemia, unspecified; Z91.89 Other specified personal risk factors, not elsewhere classified; Z78.9 Other specified health status; E03.9 Hypothyroidism, unspecified; J44.9 Chronic obstructive pulmonary disease, unspecified; G25.81 Restless legs syndrome; F41.8 Other specified anxiety disorders
CPT/HCPCS: 99285 ×2; 82550; 85025 ×2; 85730; 85610; 82553; 80048 ×2; 84484 ×2; 71045; 93880; 93005 ×2; 93010; 93307; G0378 ×3; J3490 ×2; 99217; 99220; 99226; J1650; J7030

== ENCOUNTER 2018-06-25 11:34 | Emergency (ER) | payer MEDICARE, OTHER ==
[2018-06-25 11:52] LABS: HEMATOCRIT 40.5 % (35.0-47.0); HEMOGLOBIN 13.2 gm/dl (11.6-16.0); MEAN CELL VOLUME 85.6 fl (81-97); MEAN CORPUSCULAR HEMOGLOBIN 27.9 pg (27-33); MEAN CORPUSCULAR HGB CONC 32.6 g/dl (32-36); MEAN PLATELET VOLUME 9.7 fl (7.4-10.4); PLATELET COUNT 337 K/uL (130-400); RED BLOOD COUNT 4.73 M/uL (3.80-5.40); RED CELL DISTRIBUTION WIDTH 19.8 % (11.5-14.5)
[2018-06-25 11:57] LABS: BLOOD UREA NITROGEN 17 mg/dL (8-23); CREATININE 0.9 mg/dL (0.5-0.9); EST GLOMERULAR FILTRATION RATE > 60 mL/min
[2018-06-25 11:58] LABS: LIPASE 20 U/L (13-60); TOTAL PROTEIN 7.4 g/dL (6.6-8.7)
[2018-06-25 12:00] LABS: GLUCOSE,RANDOM 116 mg/dL (74-109)
[2018-06-25 12:02] LABS: ALB/GLOB RATIO 1.3 (1.1-1.8); ALBUMIN 4.2 g/dL (4.0-5.0); ALT/SGPT 19 U/L (<33); AST/SGOT 21 U/L (10.0-35.0)
[2018-06-25 12:03] LABS: ALKALINE PHOSPHATASE 149 U/L (45-87); CREATINE PHOSPHOKINASE 98 U/L (26-192); PLATELET ESTIMATE NORMAL (NORMAL)
[2018-06-25 12:05] LABS: CKMB 2.9 ng/mL (<3.77)
[2018-06-25 12:08] LABS: INR 1.2; PARTIAL THROMBOPLASTIN TIME 31.5 SECONDS (24.5-39.1); PROTHROMBIN TIME (PATIENT) 11.8 SECONDS (9.5-12.1)
[2018-06-25 13:03] LABS: URINE APPEARANCE CLEAR; URINE BILIRUBIN NEGATIVE (NEGATIVE); URINE BLOOD NEGATIVE (NEGATIVE); URINE COLOR YELLOW; URINE GLUCOSE (UA) NEGATIVE (NEGATIVE); URINE KETONE NEGATIVE (NEGATIVE); URINE LEUKOCYTE ESTERASE NEGATIVE (NEGATIVE); URINE NITRITE NEGATIVE (NEGATIVE); URINE PROTEIN NEGATIVE (NEGATIVE); URINE UROBILINOGEN 0.2 E.U./dL (0.20 - 1.00)
[2018-06-25] MEDS ORDERED: LORAZEPAM 2 MG/ML VIAL IV ONE (13:13)
[2018-06-25] MEDS ORDERED: MORPHINE SULFATE 10 MG/ML VIAL IVP ONE (13:13)
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
== END 2018-06-25 13:51 | disposition short-term general hospital (02) ==
LOC: ER 11:34
DX: S22.20XA Unspecified fracture of sternum, initial encounter for closed fracture (principal); S32.020A Wedge compression fracture of second lumbar vertebra, initial encounter for closed fracture; S30.1XXA Contusion of abdominal wall, initial encounter; S80.211A Abrasion, right knee, initial encounter; M25.561 Pain in right knee; J44.9 Chronic obstructive pulmonary disease, unspecified; I10 Essential (primary) hypertension; I48.91 Unspecified atrial fibrillation; Z96.651 Presence of right artificial knee joint; Z79.01 Long term (current) use of anticoagulants; V43.62XA Car passenger injured in collision with other type car in traffic accident, initial encounter
CPT/HCPCS: 70450; 71260; 72125; 74160; 74177; 80053; 81003; 82550; 82553; 83690; 84484; 85027; 85610; 85730; 93005; 93010; 96374; 96375; 99285; J2270

== ENCOUNTER 2018-07-08 14:06 | Emergency (ER) | payer MEDICARE, OTHER ==
[2018-07-08 14:44] LABS: BASO % 0.4 % (0-6); EOS % 1.9 % (0-6); GRAN % 73.6 % (47-80); HEMATOCRIT 40.8 % (35.0-47.0); HEMOGLOBIN 13.1 gm/dl (11.6-16.0); LYMPH % 17.7 % (16-45); MEAN CELL VOLUME 86.1 fl (81-97); MEAN CORPUSCULAR HEMOGLOBIN 27.6 pg (27-33); MEAN CORPUSCULAR HGB CONC 32.1 g/dl (32-36); MEAN PLATELET VOLUME 8.9 fl (7.4-10.4); MONO % 6.4 % (0-9); PLATELET COUNT 379 K/uL (130-400); RED BLOOD COUNT 4.74 M/uL (3.80-5.40); RED CELL DISTRIBUTION WIDTH 18.2 % (11.5-14.5); WHITE BLOOD COUNT W/O DIFF 7.5 K/uL (4.2-12.2)
[2018-07-08 14:58] LABS: BILIRUBIN,TOTAL 0.3 mg/dL (0.2-1.0); CREATININE 1.1 mg/dL (0.5-0.9)
[2018-07-08 14:59] LABS: TOTAL PROTEIN 7.6 g/dL (6.6-8.7)
[2018-07-08 15:04] LABS: ALB/GLOB RATIO 1.2 (1.1-1.8); ALBUMIN 4.1 g/dL (4.0-5.0)
[2018-07-08] MEDS ORDERED: 0.9 % SODIUM CHLORIDE 1,000 ML BAG IV ONE ×2 (15:19→16:20)
[2018-07-08] MEDS ORDERED: MORPHINE SULFATE 10 MG/ML VIAL IVP ONE (16:23)
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
== END 2018-07-08 17:25 | disposition home or self-care (01) ==
LOC: ER 14:06
DX: S22.42XA Multiple fractures of ribs, left side, initial encounter for closed fracture (principal); V43.62XD Car passenger injured in collision with other type car in traffic accident, subsequent encounter; I10 Essential (primary) hypertension; J44.9 Chronic obstructive pulmonary disease, unspecified
CPT/HCPCS: 71260; 74177; 80053; 83690; 85025; 96374; 99283; J2270; J7030

== ENCOUNTER 2018-12-05 13:22 | Emergency (ER) | payer MEDICARE, OTHER ==
[2018-12-05] MEDS ORDERED: 0.9 % SODIUM CHLORIDE 1,000 ML BAG IV ONE (13:27)
--- NOTE | 2018-12-05 13:31 | Emergency Department Record ---
History of Present Illness - General Stated Complaint: ALTERED MENTAL STATE Time Seen by Provider: 12/05/18 13:25 Source: Patient Mode of Arrival: Ambulatory Limitations: No limitations - History of Present Illness Initial Comments: 83 yo female presents by EMS. She has had nausea, vomiting, and diarrhea all night. The symptoms continued into the day. She then began to act abnormal with crying, then laughing. She was getting confused with names. She has been saying for weeks that she can not smell or taste. She states this on arrival as well. She denies headache. Her family arrived and states she has had nausea, vomiting and diarrhea that started in the middle of the night. PCP is Dr Mayo. She was last normal at bedtime. The states she was up several times during the night. On arrival she is oriented to name and place. She is tearful. She is asking for her by name. She is emotionally labile. MD Complaint: Altered mental status, Other (Tearful, States she wants to ) -: Hour(s) (Onset last night) Consistency: Constant Context: Other Associated Symptoms: Nausea/Vomiting, Other (Diarrhea) Treatments Prior to Arrival: IV fluid - Mariano Coma Scale Eye Response: (4) Open spontaneously Motor Response: (6) Obeys commands Verbal Response: (5) Oriented Mariano Total: 15 - Related Data Previous Rx's Medication Instructions Recorded Hydralazine HCl [Apresoline] 25 mg PO TID #21 tablet 05/15/18 Montelukast Sodium [Singulair] 10 mg PO QHS tab 05/15/18 Ranitidine HCl [Zantac] 300 mg PO QHS tablet 05/15/18 Ondansetron [Zofran Odt] 4 mg PO Q8H #7 tab.rapdis 07/08/18 Oxycodone HCl/Acetaminophen 1 each PO Q6H PRN #10 tab 07/08/18 [Percocet 2.5mg/325mg] Allergies Allergy/AdvReac Type Severity Reaction Status Date / Time codeine Allergy Intermediate NAUSEA Verified 12/05/18 13:33 Review of Systems Constitutional: Reports: Chills, Fever, Malaise, Weakness Eyes: Denies: Eye discharge, Photophobia, Vision change ENT: Denies: Congestion, Throat pain Respiratory: Denies: Cough, Dyspnea Cardiovascular: Denies: Chest pain, Palpitations, Syncope Endocrine: Denies: Fatigue Gastrointestinal: Reports: Diarrhea, Nausea, Vomiting. Denies: Abdominal pain Genitourinary: Denies: Dysuria, Urgency Musculoskeletal: Denies: Arthralgia, Back pain, Neck pain Skin: Denies: Bruising, Change in color, Rash Neurological: Reports: Confusion. Denies: Headache, Numbness, Weakness Psychiatric: Reports: Anxiety Hematological/Lymphatic: Denies: Easy bleeding, Easy bruising Past Medical History - SOCIAL HISTORY Smoking Status: Never smoker - RESPIRATORY Hx Respiratory Disorders: Yes Hx Asthma: Yes Hx COPD: Yes (uses) - CARDIOVASCULAR Hx Cardio Disorders: Yes Hx Hypertension: Yes - NEURO Hx Neuro Disorders: No Hx Neuropathy: Yes (on neurontin) Comment:: RLS - GI Hx GI Disorders: Yes Hx Hiatal Hernia: Yes - Hx Genitourinary Disorders: Yes Comment:: hyst - ENDOCRINE Hx Endocrine Disorders: Yes Hx Thyroid Disease: Yes - MUSCULOSKELETAL Hx Musculoskeletal Disorders: Yes Hx Arthritis: Yes - PSYCH Hx Psych Problems: Yes Hx Anxiety: Yes Hx Depression: Yes - HEMATOLOGY/ONCOLOGY Hx Hematology/Oncology Disorders: No Family Medical History Hx Cancer: Father Hx Dementia: Mother Hx Heart Disease: Brother/Sister Hx Stroke: Mother Physical Exam - General General Appearance: Alert, Cooperative, Other (Oriented to Name and Place only thought it was 192) Limitations: Altered mental status - Head Head exam: Atraumatic, Normocephalic, Normal inspection Head exam detail: negative: Abrasion, Contusion - Eye Eye exam: Normal appearance, PERRL, EOMI. negative: Conjunctival injection, Periorbital swelling, Scleral icterus - ENT ENT exam: Normal exam, Mucous membranes moist Ear exam: Normal external inspection Nasal Exam: Normal inspection Mouth exam: Normal external inspection - Neck Neck exam: Normal inspection - Respiratory Respiratory exam: Normal lung sounds bilaterally. negative: Respiratory distress - Cardiovascular Cardiovascular Exam: Tachycardia. negative: Regular rate, Normal rhythm, Normal heart sounds Peripheral Pulses: 2+: Radial (R), Radial (L) - GI/Abdominal GI/Abdominal exam: Soft - Rectal Rectal exam: Deferred - exam: Deferred - Extremities Extremities exam: Normal inspection. negative: Pedal edema, Tenderness - Back Back exam: Denies: CVA tenderness (R), CVA tenderness (L) - Neurological Neurological exam: Alert, Altered, CN II-XII intact, Other (No focal weakness). negative: Motor sensory deficit - Psychiatric Psychiatric exam: Anxious, Other (Tearful, then speaks oddly then back to normal). negative: Agitated, Normal affect, Normal mood - Skin Skin exam: Dry, Intact, Normal color, Warm Course - Reevaluation(s) Reevaluation #1: EKG #1: 13:29 Rate: 113 Rhythm: sinus tachycardia [place]: normal Intervals: Qtc 486, rsr' ST segments: RBBB Prior: 07/31/18 12/05/18 13:45 12/05/18 14:26 UA is negative UDS is negative 12/05/18 14:29 The patient seems improved. She is much more relaxed and less labile. She only complains if burning the the stomach. 12/05/18 14:35 The HCT was negative for any acute process 12/05/18 15:25 Rectal examination completed Black Heme Positive Stool 12/05/18 15:37 TSH is 0.11 [facility] contacted for transfer Dr Gibbons of [facility] accepts the patient for transfer 12/05/18 17:38 The family was updated Waiting for available EMS transport. The patient remains stable. HR 97. BP 123/69. No confusion or pain at this time. The Protonix is infused. 12/05/18 18:43 The patient is complaining of restlessness and restless legs. She has not had her medication due to vomiting Ativan low dose ordered Medical Decision Making - Lab Data Result diagrams: 12/05/18 14:35 12/05/18 14:35 Disposition Disposition: Transfer Clinical Impression: Elevated BUN, Hyperthyroidism GI bleed Qualifiers: GI bleed type/associated pathology: melena Qualified Code(s): K92.1 - Melena Altered mental state Qualifiers: Altered mental status type: disorientation Qualified Code(s): R41.0 - Disorientation, unspecified Anemia Qualifiers: Anemia type: unspecified type Qualified Code(s): D64.9 - Anemia, unspecified Disposition: Acute Care Hospital Transfer Transfer To: [facility] Reason For Transfer: GI Bleed Accepting Physician: Edwige Time Discussed w/Accepting Physician: 15:49 Condition: (2) Stable Forms: Patient Portal Access Time of Disposition: 15:26 Quality - Quality Measures Quality Measures: N/A - Blood Pressure Screening Does Patient Have Any of the Following: No Blood Pressure Classification: Hypertensive Reading Systolic Measurement: 163 Diastolic Measurement: 75 Screening for High Blood Pressure: < Pre-Hypertensive BP, F/U Documented > [G8950] Pre-Hypertensive Follow-up Interventions: Referral to alternative/primary care provider.
[2018-12-05] MEDS ORDERED: ONDANSETRON HCL IV 4 MG/2 ML VIAL IVP ONE ×2 (13:55→14:42)
[2018-12-05 14:00] LABS: URINE APPEARANCE CLEAR; URINE BILIRUBIN NEGATIVE (NEGATIVE); URINE BLOOD NEGATIVE (NEGATIVE); URINE COLOR YELLOW; URINE GLUCOSE (UA) NEGATIVE (NEGATIVE); URINE KETONE NEGATIVE (NEGATIVE); URINE LEUKOCYTE ESTERASE NEGATIVE (NEGATIVE); URINE NITRITE NEGATIVE (NEGATIVE); URINE PROTEIN NEGATIVE (NEGATIVE); URINE UROBILINOGEN 0.2 E.U./dL (0.20 - 1.00)
[2018-12-05 14:03] LABS: AMPHETAMINE SCREEN URINE NOT DETECTED; BARBITURATE SCREEN URINE NOT DETECTED; BENZODIAZEPINE SCREEN URINE NOT DETECTED; COCAINE SCREEN URINE NOT DETECTED; METHADONE SCREEN URINE NOT DETECTED; OPIATE SCREEN URINE NOT DETECTED; PHENCYCLIDINE SCREEN URINE NOT DETECTED; PROPOXYPHENE SCREEN URINE NOT DETECTED; THC SCREEN URINE NOT DETECTED; TRICYCLIC ANTIDEPRESSANT SCRN NOT DETECTED
[2018-12-05 14:04] LABS: METHAMPHETAMINE SCREEN NOT DETECTED; OXYCODONE SCREEN URINE NOT DETECTED
[2018-12-05] MEDS ORDERED: ACETAMINOPHEN 1,000 MG/100 ML BTL IVPB ONE (14:29)
[2018-12-05] MEDS ORDERED: AL HYDROX/MAG HYDROX 30ML UD PO ONE (14:30)
[2018-12-05] MEDS ORDERED: 0.9 % SODIUM CHLORIDE 1000ML 1,000 ML IV ONE (14:35)
[2018-12-05 14:56] LABS: HEMATOCRIT 24.9 % (35.0-47.0); MEAN CELL VOLUME 86.5 fl (81-97); MEAN CORPUSCULAR HEMOGLOBIN 27.7 pg (27-33); MEAN CORPUSCULAR HGB CONC 32.1 g/dl (32-36); MEAN PLATELET VOLUME 9.5 fl (7.4-10.4); PLATELET COUNT 350 K/uL (130-400); RED BLOOD COUNT 2.88 M/uL (3.80-5.40); WHITE BLOOD COUNT W/O DIFF 10.5 K/uL (4.2-12.2)
[2018-12-05 15:03] LABS: BLOOD UREA NITROGEN 63 mg/dL (8-23)
[2018-12-05 15:04] LABS: EST GLOMERULAR FILTRATION RATE 57 mL/min; TOTAL PROTEIN 5.4 g/dL (6.6-8.7)
[2018-12-05 15:06] LABS: GLUCOSE,RANDOM 123 mg/dL (74-109); INR 1.1; PROTHROMBIN TIME (PATIENT) 11.6 SECONDS (9.5-12.1)
[2018-12-05 15:09] LABS: ALB/GLOB RATIO 1.5 (1.1-1.8); ALBUMIN 3.2 g/dL (4.0-5.0); ALKALINE PHOSPHATASE 96 U/L (35-104); ALT/SGPT 9 U/L (<33); AST/SGOT 14 U/L (10.0-35.0)
[2018-12-05 15:11] LABS: ACETAMINOPHEN < 5.0 ug/mL (10.0-30.0); SALICYLATE < 0.3 mg/dL (2.8-20)
[2018-12-05 15:13] LABS: ABSOLUTE NEUTROPHIL COUNT 8.27
[2018-12-05 15:20] LABS: THYROID STIMULATING HORMONE 0.11 uIU/mL (0.270-4.20)
[2018-12-05] MEDS ORDERED: PANTOPRAZOLE SODIUM IV 40 MG VIAL IVP ONE (15:21)
[2018-12-05] MEDS ORDERED: LORAZEPAM 2 MG/ML VIAL IV ONE (18:43)
[2018-12-05] MEDS ORDERED: DIPHENHYDRAMINE HCL 50 MG/ML VIAL IVP ONE (18:57)
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
== END 2018-12-05 19:23 | disposition short-term general hospital (02) ==
LOC: ER 13:22
DX: K92.1 Melena (principal); R79.89 Other specified abnormal findings of blood chemistry; E05.90 Thyrotoxicosis, unspecified without thyrotoxic crisis or storm; D64.9 Anemia, unspecified; R41.0 Disorientation, unspecified; R11.2 Nausea with vomiting, unspecified; R19.7 Diarrhea, unspecified; J44.9 Chronic obstructive pulmonary disease, unspecified; I11.0 Hypertensive heart disease with heart failure; Z79.01 Long term (current) use of anticoagulants
CPT/HCPCS: 99285 ×2; 96376; 96365; 96375; 96361; 85730; 85610; 80053; 36416; 82948; 81003; 84443; 80305; 84484; 85027; 70450; 93005; 93010; G0480 ×3; J2405; J2060; 80320; 80329; C9113; J1200; J7030